=== PATIENT | female | born 1995 | race Caucasian/White ===

== ENCOUNTER 2023-01-21 11:50 | Emergency (ER) | payer OTHER, SELFPAY ==
[2023-01-21 12:03] VITALS: BP 130/80; PULSE 74; RESP 16; TEMP 36.5; O2SAT 100
--- NOTE | 2023-01-21 12:50 | ED.GENADULT ---
HPI - General Adult General Chief complaint: Upper Respiratory Infection Stated complaint: Congestion/Sore Throat/Ear Pain Source: patient Mode of arrival: ambulatory Limitations: no limitations History of Present Illness HPI narrative: Patient presents for evaluation of sick symptoms for last 2 weeks. Symptoms include sinus congestion, postnasal drainage, scratchy throat, mucopurulent discharge from the nares, mild cough, and headache. No fever, chills, nausea, vomiting. Several individuals at her place of employment have been sick. She tried some OTC cough and cold medicine without considerable improvement in her symptoms. She uses marijuana but does not smoke cigarettes. Related Data Allergies Allergy/AdvReac Type Severity Reaction Status Date / Time Penicillins Allergy Verified 08/03/12 23:33 Review of Systems Review of Systems: CONSTITUTIONAL: Denies fever, chills, or sweats. EYES: Denies visual changes, redness, or discharge. ENT: Reports sinus congestion, thick yellow/green drainage from nares, sore throat and ear pressure CARDIOVASCULAR: Denies chest pain, palpitations, or edema. RESPIRATORY: Denies cough or dyspnea. GASTROINTESTINAL: Denies abdominal pain, nausea, vomiting, or diarrhea. GENITOURINARY: Denies dysuria or hematuria. SKIN: Denies rash or itching. MUSCULOSKELETAL: Denies back pain, joint pain, or myalgia. NEUROLOGIC: Reports headache. Denies numbness, dizziness, or weakness. PSYCHIATRIC: Denies anxiety or depression. [facility], [facility] Past Medical History Medical History (Updated 01/21/23 @ 13:21 by Jose Ring, DISPLAY FABRICATOR, ) No pertinent past medical history Surgical History Surgical History No pertinent past surgical history Family History Family History Mother Family history non-contributory Social History Social History Smoking status: Never smoker Substance use: current Substance use type: marijuana Living arrangements: with family Gender identity (if verbalized by the patient): Female Sexual Orientation (if Verbalized by the Patient): Straight or Heterosexual Spiritual care concerns: No Exam Narrative: GENERAL: Well-appearing, well-nourished, and in no acute distress. HEAD: Normocephalic, atraumatic. EYES: PERRLA and EOMI. ENT: Bilateral maxillary sinus tenderness with thick yellow/green drainage in nares. Oropharynx without tonsillar hypertrophy exudate or other lesions. Bilateral TMs pearly bradley nonbulging NECK: Supple. No adenopathy or masses. No carotid bruits or JVD CHEST: Clear to auscultation. No respiratory distress. No wheezes rales or rhonchi HEART: Regular rate and rhythm. No murmur heard. Normal peripheral pulses. ABDOMEN: Soft, nontender, nondistended, normal active bowel sounds. EXTREMITIES: Normal range of motion. No edema. SKIN: Warm, dry, no rash. NEURO: No focal deficits. Alert and oriented x3. PSYCH: Normal mood and affect. Course Course Emergency Course: This is a 27-year-old female who presented for evaluation of sick symptoms. Strep COVID, influenza were all negative. She meets criteria for ARBS based upon characteristics of nasal discharge and duration of time in which she has been symptomatic. Will discharge with doxycycline. Increase hydration. Kxia-cmz-vymnqgj agents for symptom management. Follow up with primary provider. Go to the emergency department for worsening symptoms. Patient in agreement with plan of care. Level of Care: Express Care Visit Vital Signs Vital signs: Vital Signs Temperature 36.5 C 01/21/23 12:03 Pulse Rate 74 01/21/23 12:03 Respiratory Rate 16 01/21/23 12:03 Blood Pressure 130/80 01/21/23 12:03 Pulse Oximetry 100 01/21/23 12:03 Oxygen Delivery Room Air 01/21/23 12:03 Temperature 36.5 C
== END 2023-01-21 13:45 | disposition home or self-care (01) ==
PROVIDERS: Emergency Provider Nurse Practitioner; PCP Family Medicine
DX: J01.90 Acute sinusitis, unspecified (principal); Z20.822 Contact with and (suspected) exposure to COVID-19; F12.90 Cannabis use, unspecified, uncomplicated
CPT/HCPCS: 87081; 87426; 87804; 87880; 99203; C9803; G0463

== ENCOUNTER 2023-03-04 14:42 | Emergency (ER) | payer OTHER, SELFPAY ==
[2023-03-04 14:49] VITALS: BP 135/87; PULSE 86; RESP 20; TEMP 36.2; O2SAT 99
--- NOTE | 2023-03-04 15:19 | ED.URI ---
HPI - URI/Sore Throat General Chief Complaint: Upper Respiratory Infection Stated Complaint: Sore Throat/Cough Source: patient and RN notes reviewed Mode of arrival: ambulatory Limitations: no limitations History of Present Illness HPI Narrative: 28 y/o female presented for c/o sinus congestion, sore throat, ear pain for one week. Started with cough yesterday. 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 Denies dizziness, n/v/d/f/c. Taking otc med for symptoms. MD elicited complaint: cough Related Data Home Medications Medication Instructions Recorded Confirmed norethindrone (contraceptive) 0.35 0.35 mg PO DAILY 03/04/23 03/04/23 mg tablet sertraline 100 mg tablet 100 mg PO DAILY 03/04/23 03/04/23 zolmitriptan 5 mg tablet (Zomig) 5 mg PO ONCE 03/04/23 03/04/23 Allergies Allergy/AdvReac Type Severity Reaction Status Date / Time Penicillins AdvReac Intermediate Vomiting Verified 03/04/23 14:58 Review of Systems Review of Systems: CONSTITUTIONAL: Denies malaise, chills, sweats, fever EYES: Denies visual changes, redness, or discharge ENT: Reports rhinorrhea, congestion, otalgia, sore throat CARDIOVASCULAR: Denies chest pain, palpitations, edema RESPIRATORY: Reports cough, post nasal drainage. Denies dyspnea GASTROINTESTINAL: Denies abdominal pain, nausea, vomiting, diarrhea SKIN: Denies rash or itching MUSCULOSKELETAL: denies myalgia NEUROLOGIC: Denies headache PMFSH Past Medical History Medical History No pertinent past medical history Surgical History Surgical History No pertinent past surgical history Family History Family History Mother Family history non-contributory Social History Social History Smoking status: Never smoker Substance use: current Substance use type: marijuana Living arrangements: with family Gender identity (if verbalized by the patient): Female Sexual Orientation (if Verbalized by the Patient): Straight or Heterosexual Spiritual care concerns: No Exam Narrative: GENERAL: Mildly Ill-appearing, nontoxic no acute distress. HEAD: Normocephalic EYES: PERRLA, conjunctivae clear ENT: Mucous membranes moist. TM pearly bradley with dull light reflex bilaterally; no tragal tenderness. slightly hoarse voice. oropharynx erythematous without lesions or exudate, no drooling, no trismus, uvula midline. No tripod positioning, muffled voice, soft palate or pharyngeal wall bulging NECK: Supple. No lymphadenopathy CHEST: Clear to auscultation, breath sounds equal. No wheezing, rhonchi, rales, or stridor. No respiratory distress, speaks in full sentences. HEART: Regular rate and rhythm. No murmur heard. SKIN: Warm, dry, no rash. NEURO: Alert and oriented x3. PSYCH: Normal mood and affect Course Course Emergency Course: Patient is aware of diagnosis, understands and agrees to treatment plan. Anticipatory guidance given. Patient agrees to follow-up as directed and is aware of reasons to seek care at the emergency department. Portions of this record may have been created with voice recognition software Level of Care: Express Care Visit Vital Signs Vital signs: Vital Signs Temperature 97.1 F L 03/04/23 14:49 Pulse Rate 86 03/04/23 14:49 Respiratory Rate 20 03/04/23 14:49 Blood Pressure 135/87 03/04/23 14:49 Pulse Oximetry 99 03/04/23 14:49 Oxygen Delivery Room Air 03/04/23 14:49 Temperature 97.1 F L 03/04/23 14:49 Pulse Rate 86 03/04/23 14:49 Respiratory Rate 20 03/04/23 14:49 Blood Pressure 135/87 03/04/23 14:49 Pulse Oximetry 99 03/04/23 14:49 Oxygen Delivery Room Air 03/04/23 14:49 reviewed MDM - URI/Sore Throat MDM Narrative Medical decision making narrative: Negative strep test reviewed w
== END 2023-03-04 15:30 | disposition home or self-care (01) ==
PROVIDERS: Emergency Provider Nurse Practitioner Family; PCP Family Medicine
DX: J06.9 Acute upper respiratory infection, unspecified (principal)
CPT/HCPCS: 87081; 87880; 99213; G0463

== ENCOUNTER 2024-09-12 16:30 | Emergency (ER) | payer OTHER, SELFPAY ==
--- NOTE | ~2024-09-12 | XR_ITS ---
HISTORY: injury COMPARISON: None TECHNIQUE: 3 views of the right foot were performed FINDINGS: No acute fracture or dislocation is appreciated. No significant degenerative disease is noted. The base of the fifth metatarsal is intact. No calcaneal spur is noted. No significant soft tissue swelling is present. IMPRESSION: No acute fracture Reviewed, dictated and finalized at location A. IMPRESSION: No acute fracture
--- OUTSIDE RECORDS SUMMARY | 2024-09-12 16:33 | XMS_ITS | Data Portability ---
Author Organization [place] - Included [facility] , [facility] Address [address] [place] [address] Assessment Encounter Date Assessment Date Assessment LastModified by Organization Details LastModified Time 06/30/2024 06/30/2024 Viral respiratory infection - supported by symptoms of sore throat, cough, body aches, chills, congestion, and contact with sick individuals. - Advised the patient to get a COVID/influenza test at [facility] or [facility] - Continue taking iwuq-yws-pmeqkvd cold and flu medications containing Tylenol and decongestants - If test results are positive for COVID or influenza, further treatment will be provided - If test results are negative, recommended supportive care and vitamin C for immune support, noting that symptoms should resolve in about a week [email or web address] Not available 06/30/2024 07:15:03 Plan of Treatment Reminders Order Date Submit Date Provider Last Modified By Organization Details Last Modified Time Details Appointments None record ed. Lab None record ed. Referral None record ed. Procedures None record ed. Surgeries None record ed. Imaging None record ed. Medication Orders None record ed. Patient TargetsNo targets recorded. Patient Instructions Encounter Date Encounter Id Patient Instructions Last Modified By Organization Details Last Modified Time 06/30/2024 [id number] upper respirator y infection (cold): care instructions [email or web address] Not available 06/30/2024 07:16:47 Reason for Referral None Reported. Problems Name Problem SNOMED Code Status Onset Date Resolution Date Notes Provider Name and Address Organization Details Recorded Time Depressive disorder 14833782 Active COLLIN Chicas [address] [address], [place], [address], [place] - Included [employer] 07:10:14 Attention deficit hyperactivit y disorder 531025352 Active COLLIN Chicas 1 [facility] [address] [place] [address], [address], [place] - Included [facility] 07:10:22 Problem Notes None recorded. Medical Equipment None Reported. Allergies Allergen ID Allergen Name Allergen Category Reaction Reaction Severity Criticality Documentation Date Start Date Code Code System Note Provider Name and Address Organization Details Recorded Time 228394 Product containin g penicilli n (product) medicatio n Not available Not available Not available 06/30/2024 33592 8001 SNOMED Not Available Included [facility] - [facility] 05:55:33 Medications Name Sig Start Date Stop Date Status Note LastModified by Organization Details LastModified Time phenazopyrid ine 200 mg tablet active Not Available Not Available Not Available sulfamethoxa zole 800 mg-trimethop rim 160 mg tablet active Not Available Not Available Not Available UNLISTED MEDICATION [Migrated medication name:] Norethindro ne:: active Not Available Not Available No t Available UNLISTED MEDICATION [Migrated medication name:] Zyrtec:: active Not Available Not Available No t Available UNLISTED MEDICATION [Migrated medication name:] Sertraline: : active Not Available Not Available No t Available dextroamphet amine active Not Available Not Available Not Available Vitals Date Recorded Body weight Body mass index (BMI) Body height Provider Name and Address Organization Details Last Updated DateTime 06/30/2024 43167.59 g 32.8 kg/m2 160.02 cm COLLIN Chicas 1 [facility] [address], [address], [place] - Included [facility] 06/30/2024 07:10:33 Social History None recorded. Functional Status None recorded. Mental Status None recorded. Family History Nothing Reported. Medical History No medical history recorded. Gynecological HistoryNo gynecological history recorded. Obstetrics History GPAL:G 0 P 0 0 0 0 Past Encounters Encounter ID Performer Location Encounter Start Date Encounter Closed Date Diagnosis/Indication Diagnosis SNOMED-CT Code Diagnosis ICD10 Code Diagnosis Note [id number] COLLIN Chicas [facility] [address] [place] [address] 06/30/2024 07:08:51 06/30/2024 13:14:41 Acute upper respiratory infection 93077550 J06.9 Summary of Today's Visit:Toda y, you expressed concerns about feeling unwell with symptoms that began gradually, starting with body aches, chills, a dry cough, and a sore throat. You also mentioned pressure behind your eyes similar to migraines. 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 Diagnostic Recommenda tion:Given your symptoms, it is possible that you may have a viral respirator y infection, such as influenza, COVID-19, or another common virus. To determine the exact cause, it is important to obtain a COVID-19 and influenza test, which you can find at pharmacies like [facility] or [facility]. Please do this at your earliest convenienc e. Symptom Management :In the meantime, you can continue taking the over-the-c ounter cold and flu medication s you've been using, such as NyQuil and Tylenol, which contain ingredient s to help manage pain, fever, and congestion . Additional ly, taking vitamin C can help boost your immune system as you recover. Pending Follow-Up Plan:If your test results come back positive for either COVID-19 or influenza, further treatment can be initiated at that point. Should your results be negative, supportive care with rest and hydration is recommende d, as your symptoms may resolve on their own within about a week. If your symptoms persist or worsen, or if you have any questions or concerns, please reach out for follow-up care. Health Concerns Section Related Observation LastModified by Organization Detai ls LastModified Time None Recorded Concern Status LastModified by Organization Details LastModified Time None Recorded Advance Directives Directive None Recorded Payers Insurance Date Sequence Insurance Name Policy Number Policy Alcantara Covered Member ID Alcantara Member ID Guarantor Name 06/30/2024 [employer] [id number] Charlotte Fidelina [id number] Charlotte Fidelina 06/30/2024 1 *SELF PAY* Sara pang Fidelina 06/30/2024 3 *SELF PAY* [id number] Charlotte Fidelina [id number] Charlotte Fidelina 06/30/2024 2 [facility] [id number] Charlotte Fidelina [id number] Charlotte Fidelina 06/30/2024 1 [facility] [id number] Charlotte Fidelina [id number] Charlotte Fidelina Notes Date Note Type Note Provider Name and Address Organization Details Recorded Time 06/30/2024 text/html Call connected, patient greeted. Patient name, , telephone number, and location verified verbally with the patient. Telemedicine limitations reviewed, answered all questions the patient had about the telehealth interaction, and verbal consent obtained to treat. Clinician attests they are physically located in the following state at the time of visit: The patient also consents to the use of AI scribe technology. 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 The symptoms began progressively throughout the previous day, starting with soreness in various parts of the body. The patient then experienced significant chills and developed a cough, which is primarily dry but occasionally produces minimal mucus. The cough feels localized to the chest. The patient also reports a sore throat, potentially related to frequent coughing, and congestion in the head. There is associated pressure behind the eyes, similar to the patient s migraine symptoms. Given the patient s occupation, there have been multiple exposures, with illnesses such as COVID-19 and influenza circulating through the classroom recently. To date, the patient has self-managed symptoms with lral-tzu-oeaqkef medications such as NyQuil Cold and Flu daytime medicine and Tylenol, providing some relief, particularly for pain. The patient denies having a runny nose, sneezing, or fever. COLLIN Chicas 1 [facility] [address], [place], [address], [facility] 06/30/2024 07:16:50 OBGyn Episode No OBEpisode recorded.
--- OUTSIDE RECORDS SUMMARY | 2024-09-12 16:33 | XMS_ITS | Encounter Summary ---
Author Organization [facility] Address [facility] [place] [address] Care Team Providers Care Log Loader Name Role Phone Shannan Grewal NP Primary Care Provider [phone] Encounter Details Date Type Department Care Team (Late st Contact Info) Description 11/02/2022 [facility] [facility] Message Enc [facility] [address] [place], [place] [id number] [place], [facility] Provider Air Quality Message Social History Tobacco Use Types Packs/Day Years Used Date Smoking Tobacco: Never Passive Smoke Exposure: Never Smokeless Tobacco: Never Alcohol Use Standard Drinks/Week Comments Yes 0 (1 standard drink = 0.6 oz pur e alcohol) once a week PHQ-2 Answer Date Recorded Patient Health Questionnaire-2 Score 2 05/04/2022 Comments No Sex and Gender Information Value Date Recorded Sex Assigned at Not on file Legal Sex Female 7:40 PM CDT Gender Identity Not on file Sexual Orientation Not on file COVID-19 Exposure Response Date Recorded In the last 10 days, have yo u been in contact with someone who was confirmed or suspected to have Coronavirus/COVID-19? No / Unsure 10/11/2022 9:57 AM CDT documented as of this encounter Plan of Treatment Not on file documented as of this encounter Visit Diagnoses Not on filedocumented in this encounter Additional Health Concerns Assessment Noted Time PHQ-9 Depression Total Score: 13 05/04/ 022 10:26 AM DISPATCHER MAINTENANCE SERVICE documented as of this encounter Care Teams Log Loader Relationship Specialty Start Date End Date Shannan Grewal NP [address] [place], [place] [address] PCP - General NURSE PRACTITIONER 04/01/22 documented as of this encounter
--- OUTSIDE RECORDS SUMMARY | 2024-09-12 16:33 | XMS_ITS | Clinical Summary ---
Author Organization [address] Address [address] [place] [address] Care Team Providers Care Director Of Therapy Services Name Role Phone Michele Walker MD Primary Care Provider [phone] Allergies Active Allergy Reactions Criticality Noted Date Comments Penicillins Stomach upset,Nausea And Vomiting,Other (See comments),Unknown,Nausea & Vomiting Low 06/27/2016 Medications sertraline (ZOLOFT) 100 mg tablet Take 1 tablet (100 mg total) by mouth daily 12/19/2022 Active norethindrone (MICRONOR) 0.35 mg tablet Take 1 tablet (0.35 mg total) by mouth daily 12/19/2022 Active hydrOXYzine (ATARAX) 25 mg tablet TAKE 1/2 TO 1 TABLET BY MOUTH TWICE DAILY NEEDED FOR ANXIETY OR INSOMNIA 03/17/2023 Active cetirizine (ZyrTEC) 10 mg tablet Take 1 tablet (10 mg total) by mouth 07/13/2016 Active Active Problems Problem Noted Date Diagnosed Date Eczema 04/16/2023 Panic attack 04/16/2023 JOSE (generalized anxiety disorder) 03/21/2023 Moderate episode of recurrent major depressive d isorder 03/21/2023 Excessive bleeding in premenopausal period 12/28 Anxiety 12/19/2022 Depression 12/19/2022 Migraine 12/19/2022 Mild intermittent asthma without complication Seasonal allergies 12/19/2022 Numbness and tingling of right hand 07/11/2022 Social History Tobacco Use Types Packs/Day Years Used Date Smoking Tobacco: Never Assessed Comments Unknown Sex and Gender Information Value Date Recorded Sex Assigned at Not on file Legal Sex Female 9:48 AM CDT Gender Identity Not on file Sexual Orientation Not on file Obstetrics History Last Filed Vital Signs Vital Sign Reading Time Taken Comments Blood Pressure 116/78 05/14/2023 11:41 AM GLAZIER APPRENTICE Pulse 102 05/14/2023 11:41 AM GLAZIER APPRENTICE Temperature 36.9 C (98.4 F) 05/14/2023 11:41 AM GLAZIER APPRENTICE Respiratory Rate 21 05/14/2023 11:41 AM GLAZIER APPRENTICE Oxygen Saturation 97% 05/14/2023 11:41 AM GLAZIER APPRENTICE Inhaled Oxygen Concentration - - Weight 90.7 kg (200 lb) 05/14/2023 11:41 AM GLAZIER APPRENTICE Height 160 cm (5' 3 ) 05/14/2023 11:41 AM GLAZIER APPRENTICE Body Mass Index 35.43 05/14/2023 11:41 AM GLAZIER APPRENTICE Plan of Treatment Health Maintenance Due Date Last Done Comments Cervical Cancer Screening 1993 Depression Screening 1993 Hepatitis C Screening 1993 Varicella Vaccines (2 of 2 - 13+ 2-dose series) 12/21/2007 11/23/2007 Regular Well Visit/Exam 18-64 2011 Pneumococcal vaccine <65 (1 of 2 - PCV) 02/06/2012 DTaP/Tdap/Td Vaccine (6 - Td or Tdap) 10/11/2023 10/10/2013, 11/23/2007, 08/26/1994, Additional history exists Influenza Vaccine (Season Ended) 2025 02/14/2023, 03/20/2017, 03/20/2017, Additional history exists Hepatitis B Screening Completed 1993 , 1993, 1993 HPV Vaccines Aged Out No longer eligi ble based on patient's age to complete this topic Insurance [facility] CHOICE PLUS [facility] HMO/PPO Address: [place] [address] * Guarantor: Charlotte Kitchen Account Type Relation to Patient Date of Phone Billing Address Personal/Family Self 1995 [id number] [place] [address] Care Teams Director Of Therapy Services Relationship Specialty Start Date End Date Michele Walker MD [address] [facility] [place] [address] PCP - General Family Medicine 04/16/23
--- OUTSIDE RECORDS SUMMARY | 2024-09-12 16:33 | XMS_ITS | Referral Summary ---
Author Organization [address] Address [address] [place] [id number] Care Team Providers Care Glove Cleaner Name Role Phone Michele Walker MD Primary Care Provider [phone] Allergies Active Allergy Reactions Criticality Noted Date [...] on file Sexual Orientation Not on file Last Filed Vital Signs Vital Sign Reading Time Taken Comments Blood Pressure 116/78 05/14/2023 11:41 AM CHAPLAINCY Pulse 102 05/14/2023 11:41 AM CHAPLAINCY Temperature 36.9 C (98.4 F) 05/14/2023 11:41 AM CHAPLAINCY Respiratory Rate 21 05/14/2023 11:41 AM CHAPLAINCY Oxygen Saturation 97% 05/14/2023 11:41 AM CHAPLAINCY Inhaled Oxygen Concentration - - Weight 90.7 kg (200 lb) 05/14/2023 11:41 AM CHAPLAINCY Height 160 cm (5' 3 ) 05/14/2023 11:41 AM CHAPLAINCY Body Mass Index 35.43 05/14/2023 11:41 AM CHAPLAINCY Plan of Treatment Not on file Insurance [facility] CHOICE [facility]US [facility] H[facility]/PPO Address: [facility] [address] [place] [address] Care Teams Glove Cleaner Relationship Specialty Start Date End Date Michele Walker MD [address] [facility] [address] PCP - General Family Medicine 04/16/23
--- OUTSIDE RECORDS SUMMARY | 2024-09-12 16:33 | XMS_ITS | Encounter Summary ---
Author Organization [facility] Address [address] [place] [address] Phone Care Team Providers Care Clinical Engineering Manager Name Role Phone Sadiq Manzanares APRN, JOSE C Primary Care Pr ovider Reason for Visit * Reason Comments Medication Refill Encounter Details Date Type Department Care Team (Late st Contact Info) Description 12/04/2023 Refill [facility] - Family Medicine [facility] [address] [place] [address] Michele Walker MD [address] [place] [address] Medication Refill Social History Tobacco Use Types Packs/Day Years Used Date Smoking Tobacco: Never Smokeless Tobacco: Never Alcohol Use Standard Drinks/Week Comments Yes 0 (1 standard drink = 0.6 oz pur e alcohol) socially AHC Utilities Answer Date Recorded In the past 12 months has [employer], gas, oil, or water [employer] threatened to shut off services in your home? No 07/09/2023 Social Connection and Isolation Panel [NHANES] A nswer Date Recorded In a typical week, how many times do you talk on the phone with family, friends, or neighbors? Never 07/09/2023 How often do you get together with friends or re latives? Never 07/09/2023 How often do you attend shinto or church serv ices? Never 07/09/2023 Do you belong to any clubs o r organizations such as shinto groups, unions, fraternal or athletic groups, or school groups? No 07/09/2023 How often do you attend meet ings of the clubs or organizations you belong to? Never 07/09/2023 Are you , , di vorced, , never , or living with a partner? 07/09/2023 AUDIT-C Answer Date Recorded Q1: How often do you have a drink containing alc ohol? 2-3 times a week 07/09/2023 Q2: How many drinks containi ng alcohol do you have on a typical day when you are drinking? 1 or 2 07/09/2023 Q3: How often do you have si x or more drinks on one occasion? Never 07/09/2023 Overall Financial Resource Strain (CARDIA) Answe r Date Recorded How hard is it for you to pa y for the very basics like food, housing, medical care, and heating? Somewhat hard 07/09/2023 PHQ-2 Answer Date Recorded Total Score - Questions 1-9 18 05/09 [facility] - Occupational Stress Questionnaire Answer Date Recorded Do you feel stress - tense, restless, nervous, or anxious, or unable to sleep at night because your mind is troubled all the time - these days? Rather much 07/09/2023 Exercise Vital Sign Answer Date Recorde d On average, how many days pe r week do you engage in moderate to strenuous exercise (like a brisk walk)? 0 days 07/09/2023 On average, how many minutes do you engage in exercise at this level? 0 min 07/09/2023 Hunger Vital Sign Answer Date Recorded Within the past 12 months, y ou worried that your food would run out before you got the money to buy more. Never true 07/09/19 24 Within the past 12 months, t he food you bought just didn't last and you didn't have money to get more. Never true 07/09/2023 PRAPARE - Transportation Answer Date Re corded In the past 12 months, has l ack of transportation kept you from medical appointments or from getting medications? No 07/2023 In the past 12 months, has l ack of transportation kept you from meetings, work, or from getting things needed for daily living? No 07/09/2023 Housing Stability Vital Sign Answer Wil e Recorded In the last 12 months, was t here a time when you were not able to pay the mortgage or rent on time? No 07/09/2023 In the last 12 months, how many places have you lived? 2 07/09/2023 In the last 12 months, was t here a time when you did not have a steady place to sleep or slept in a long term (including now)? No 07/09/2023 Education Answer Date Recorded What is the highest level of school you have completed or the highest degree you have received? Bachelor's degree (e.g., BA, AB, BS) 12/19/2022 Sexually Active Control Partners Comments Yes Male Comments Unknown Sex and Gender Information Value Date Recorded Sex Assigned at Female 12/19/2022 2:03 PM CDT Legal Sex Female 9:22 AM CDT Gender Identity Female 12/19/2022 2:03 PM CDT Sexual Orientation Not on file documented as of this encounter Miscellaneous Notes * Telephone Encounter - Alejandra Mcgovern RN - 12/12/2023 8:18 AM CDT Name from pharmacy: NORETHINDRONE 0.35MG TABLETS 28S Will file in chart as: Norethindrone, Contraceptive, 0.35 MG Tablet The original prescription was reordered on 12/11/2023 by Michele Walker MD. * Telephone Encounter - Alejandra Mcgovern RN - 12/04/2023 11:52 AM CDT duplicate documented in this encounter Plan of Treatment Upcoming Encounters Date Type Department Care Team (Late st Contact Info) Description 01/14/2025 4:15 PM CDT [facility] Visit [facility] - [facility] - [facility] [address] [place] [address] Sadiq Manzanares APRN, SPRING REPAIRER HELPER HAND [address] [address] documented as of this encounter Goals Goal Patient Goal Type Associated Problems Recent Progress Patient-Stated? Author no unhealthy anxiety Behavioral Health On track(2022 5:08 PM ELEMENTARY EDUCATION TUTOR) Yes Raquel Guerra LCSW reduce anxiety and depression Behavioral Health On track(2022 5:08 PM ELEMENTARY EDUCATION TUTOR) No Raquel Guerra LCSW Note: Goal/Objective: Improve ability to cope with anxiety and depression. . Anticipated Time Frame for Goal Completion: 6 months Goal Reviewed with: patient Readiness to change: Ready to change Department associated with goal: [facility] Steps to achieve goal: will attend counseling/psychotherapy sessions at least once monthly, at least 6 sessions, utilizing individual and/or group sessions to express thoughts and feelings. to identify, verbalize and process at least three contributing factors/triggers to anxiety and depression. to identify and verbalize at least three actions/skills to prevent and/or cope with anxiety and depression. to put into action, at least one time weekly, for one month, an action/skill to prevent and or cope with anxiety and depression. documented as of this encounter Visit Diagnoses Diagnosis Excessive bleeding in premenopausal period Premenopausal menorrhagia documented in this encounter Additional Health Concerns Assessment Noted Time PHQ-9 Depression Total Score: 18 024 6:18 PM ELEMENTARY EDUCATION TUTOR documented as of this encounter Care Teams Clinical Engineering Manager Relationship Specialty Start Date End Date Sadiq Manzanares APRN, SPRING REPAIRER HELPER HAND [address] [facility] [place] [address] PCP - General Advanced Practice Nurse 01/15/24 documented as of this encounter
--- OUTSIDE RECORDS SUMMARY | 2024-09-12 16:33 | XMS_ITS | Encounter Summary ---
Author Organization [facility] Address [address] [place] [address] Care Team Providers Care Health Information Technologist Name Role Phone Shannan Grewal NP Primary Care Provider [phone] Encounter Details Date Type Department Care Team (Late st Contact Info) Description 08/29/2022 [employer] Message Enc [facility] Family Medicine [facility] [address] [place] [address] [facility] Med[facility] Social History Tobacco Use Types Packs/Day Years [...] on file Sexual Orientation Not on file documented as of this encounter Plan of Treatment Not on file documented as of this encounter Visit Diagnoses Not on filedocumented in this encounter Additional Health Concerns Assessment Noted Time PHQ-9 Depression Total Score: 13 022 10:26 AM HR LEADER documented as of this encounter Care Teams Health Information Technologist Relationship Specialty Start Date End Date Shannan Grewal NP [address] [place], [place] [address] PCP - General NURSE PRACTITIONER 04/01/22 documented as of this encounter
--- OUTSIDE RECORDS SUMMARY | 2024-09-12 16:33 | XMS_ITS | Clinical Summary ---
Author Organization [facility] Address [address] [place] [address] Care Team Providers Care Order Checker Packer Processer Name Role Phone Shannan Grewal NP Primary Care Provider [phone] Allergies Active Allergy Reactions Criticality Noted Date Comments Penicillins GI Upset,Nausea and Vomiting,Unknown,Vomiting 06/27/2016 Medications albuterol sulfate HFA 108 (90 Base) MCG/ACT inhaler Inhale 2 puffs into the lungs. 05/03/2017 Active cetirizine (ZYRTEC) 10 MG tablet Take 1 tablet by mouth daily as needed. 07/13/2016 Active SUMAtriptan (IMITREX) 50 MG tabletIndication s:Intractable migraine with aura without status migrainosus Take one tablet at onset headache, may repeat in 2 hours. Do not exceed 3 tablets in 24 hours 9 tablet 5 03/11/2022 Active Norethindrone, Contraceptive, 0.35 MG tablet Take 1 tablet by mouth daily. Active azithromycin (ZITHROMAX Z-ONEIL) 250 MG tabletIndication s:Upper respiratory tract infection, unspecified type Take 2 tablets by mouth on day one then 1 daily for four days. 6 tablet 07/11/2022 Active sertraline (ZOLOFT) 100 MG tabletIndication s:Severe episode of recurrent major depressive disorder, without psychotic features (CMS/HCC HHS/HCC) Take 1 tablet by mouth once daily 90 tablet 02/22/2023 Active Active Problems Problem Noted Date Diagnosed Date Numbness and tingling of right hand 07/11/2022 BMI 32.0-32.9,adult 03/11/2022 Panic attack Depression Anxiety Seasonal allergies Mild intermittent asthma without complication (H HS/HCC) Migraine Eczema Immunizations Immunization Administration Dates Next Due Dtp (Generic) 08/26/1994 Dtp/Hib (Tetramune) 08/26/1994,1993,1993,1993 Hepatitis A (Havrix [address]) 10/10/2013 Hepatitis B Pediatric 1993,1993,05/1992 Influenza (Generic) 02/25/2016 Influenza Adult (Generic) 03/20/2017,04/15/2016, 03/23/2015 MMR (MMRII) 11/23/2007,05/12/1994 Meningococcal (Generic) 11/23/2007 Polio Opv (Generic) 08/26/1994,1993,1993,1993 Td (TDVAX) 11/23/2007 Tdap (Generic) 10/10/2013 Varicella (Varivax) 11/23/2007 Family History Medical History Relation Comments Breast Cancer Maternal Aunt Asthma Mother Relation Status Comments Father Maternal Aunt Maternal Grandfather Alive Maternal Grandmother Alive Mother Alive Sister Alive Social History Tobacco Use Types Packs/Day Years Used Date Smoking Tobacco: Never Passive Smoke Exposure: Never Smokeless Tobacco: Never Tobacco Cessation:Counseling Given: Not Answered Alcohol Use Standard Drinks/Week Comments Yes 0 [...] Sign Reading Time Taken Comments Blood Pressure 132/75 10/11/2022 10:10 AM CDT Pulse 83 10/11/2022 10:10 AM CDT Temperature 36.7 C (98.1 F) 10/11/2022 10:10 AM CDT Respiratory Rate 18 07/11/2022 8:27 AM SECURITY THREAT ANALYST Oxygen Saturation 99% 10/11/2022 10:10 AM CDT Inhaled Oxygen Concentration - - Weight 90.3 kg (199 lb) 10/11/2022 10:10 AM CDT Height 162.6 cm (5' 4 ) 10/11/2022 10:10 AM CDT Body Mass Index 34.16 10/11/2022 10:10 AM CDT Plan of Treatment Health Maintenance Due Date Last Done Comments Cervical Cancer Screening Pap Smear (Age 30 to 64) Every 3 Years 1993 Annual Physical 02/06/1996 Hepatitis C 2011 Pneumococcal Vaccine: Pediatrics (0 to 5 Years) and At-Risk Patients (6 to 49 Years) (1 of 2 - PCV) 02/06/2012 Cervical Cancer Screening Pap with HPV Testing (Age 30 to 64) Every 5 Years 2023 Cervical Cancer Screening with HPV 2023 DTaP, Tdap and Td Vaccines (4 - Td or Tdap) 10/11/2023 10/10/2013, 11/23/2007, 08/26/1994, Additional history exists COVID-19 Vaccine ( season) 2024 12/17/2021 PHQ-2 (Physician [place]) 05/08/2024 Hepatitis B Vaccines Completed 1993, 1993, 1993 Meningococcal Vaccine Aged Out 11/23/2007 No farhad praveena eligible based on patient's age to complete this topic HPV Vaccines Aged Out No longer eligi ble based on patient's age to complete this topic Meningococcal B Vaccine Aged Out No l onger eligible based on patient's age to complete this topic RSV Immunizations Under 20 Months Aged Out No longer eligible based on patient's age to complete this topic Insurance [employer] Care Teams Order Checker Packer Processer Relationship Specialty Start Date End Date Shannan Grewal NP [address] [facility] [address] [place] [address] PCP - General NURSE PRACTITIONER 04/01/22
--- OUTSIDE RECORDS SUMMARY | 2024-09-12 16:33 | XMS_ITS | Clinical Summary ---
Author Organization [facility] Address [address] [place] [address] Phone Care Team Providers Care Toolmaker Helper Name Role Phone Sadiq Manzanares APRN, HAND FOLDER Primary Care Pr ovider Allergies Active Allergy Reactions Criticality Noted Date Comments Penicillins Vomiting,Unknown,Other (see Comments) 06/27/2016 Medications cetirizine (ZyrTEC) 10 MG TabletIndicatio ns:Seasonal allergies Take 1 Tablet by mouth. 7 Active hydrOXYzine (ATARAX) 25 MG Tablet TAKE 1/2 TO 1 TABLET BY MOUTH TWICE DAILY NEEDED FOR ANXIETY OR INSOMNIA 3 Active triamcinolone (KENALOG) 0.1 % Cream Application Site: apply daily to hands (Description and Location) 160 g 1 4 Active Norethindrone, Contraceptive, 0.35 MG TabletIndicatio ns:menorrhagia Take 1 Tablet by mouth daily. Indications: menorrhagia 84 Tablet 4 Active sertraline (ZOLOFT) 100 MG TabletIndicatio ns:Moderate episode of recurrent major depressive disorder (HCC),Anxiety Take 2 Tablets by mouth daily. 60 Tablet 4 Active amphetamine-dex troamphetamine (ADDERALL XR) 20 MG CAPSULE SR 24 HR Take 10 mg by mouth every morning. Active amphetamine-dex troamphetamine (Adderall) 5 MG Tablet Take 5 mg by mouth daily. MIDDLE OF THE DAY Active SUMAtriptan (IMITREX) 25 MG Tablet Take 1 Tablet by mouth once as needed for Migraine or Headaches. Use as directed. May repeat dose in 2 hours if headache recurs. Max of 2 tablets in 24 hours. 9 Tablet 1 4 Active Active Problems Problem Noted Date Diagnosed Date JOSE (generalized anxiety disorder) 03/21/2023 Moderate episode of recurrent major depressive d isorder 03/21/2023 Excessive bleeding in premenopausal period 12/28 Anxiety 12/19/2022 Depression 12/19/2022 Migraine 12/19/2022 Mild intermittent asthma without complication Seasonal allergies 12/19/2022 Immunizations Immunization Administration Dates Next Due Covid-19, Mrna, Lnp-s, Pf, 3 0 Mcg/0.3 Ml Dose, Se-sucrose (Wonderswamp sánchez top) 12/17/2021 DTP Vaccine 08/26/1994 DTP-Hib 08/26/1994, 4,1993,04/07 Hepatitis A Vaccine 10/10/2013 Hepatitis B Vaccine, Pediatric/adolescent 1993,1993,1993 Influenza Seasonal, Intrader mal, Preservative Free 02/14/2023 Influenza Vaccine 02/14/2023,02/25/2016,02/25/20 Influenza Vaccine, Quadrivalent, PF 03/20/2017 Influenza Vaccine,unspecifie d Formulation 03/20/2017,04/15/2016,02/25/2016,03/23 Influenza, Injectable, Quadrivalent 04/15/2016,1 05/23/2014 Influenza,Split Virus,Trivalent,Injectable,PF 01/15/2024 MMR Vaccine 11/23/2007,05/12/1994 Meningococcal Vaccine, Unspe cified Formulation 11/23/2007 OPV 08/26/1994, 4,1993,04/07 TD VACCINE 11/23/2007 TDAP Vaccine 10/10/2013 Varicella Vaccine Live 11/23/2007 Family History Medical History Relation Name Comments Cancer Father Stevie Diabetes Maternal Aunt 1 Nanyc Cancer Maternal Aunt 2 Racheal Rheumatoid Arthritis Maternal Aunt 2 Racheal Stroke Maternal Aunt 2 Racheal Depression Maternal Grandfather Taj Diabetes Maternal Grandfather Taj Heart Attack Maternal Grandfather Taj Hypertension Maternal Grandfather Taj Rheumatoid Arthritis Maternal Grandfather Taj Mental Disorder, Other Maternal Grandmother Karla Rheumatoid Arthritis Maternal Grandmother Karla Asthma Mother Shannan Mental Disorder, Other Mother Shannan No Known Problems Sister Noreen Relation Name Status Comments Father Stevie Maternal Aunt 1 Nancy Maternal Aunt 2 Racheal Maternal Grandfather Taj Alive Maternal Grandmother Karla Alive Mother Shannan Alive Sister Noreen Alive Social History Tobacco Use Types Packs/Day Years Used Date Smoking Tobacco: Never Smokeless Tobacco: Never Tobacco Cessation:Counseling Given: No Alcohol Use Standard Drinks/Week Comments Yes 5 (1 standard drink = 0.6 oz pur e alcohol) socially [facility] Utilities Answer Date Recorded In the past 12 months has e electric, gas, oil, or water company threatened to shut off services in your home? No 07/09/2023 Social Connection and Isolation Panel [NHANES] A nswer Date Recorded In a typical week, how many times do you talk on the phone with family, friends, or neighbors? Never 07/09/2023 How often do you get together with friends or re latives? Never 07/09/2023 How often do you attend yazidi or holiness serv ices? Never 07/09/2023 Do you belong to any clubs o r organizations such as yazidi groups, unions, fraternal or athletic groups, or [...] Total Score - Questions 1-9 18 05/09 [facility] - Occupational Stress [...] place to sleep or slept in a nursing home (including now)? No 07/09/2023 Education Answer Date Recorded What is the highest level of school you have completed or the highest degree you have received? Bachelor's degree (e.g., BA, AB, BS) 12/19/2022 Sexually Active Control Partners Comments Yes Oral Contraceptive Male Comments Unknown Sex and Gender Information Value Date Recorded Sex Assigned at Female 12/19/2022 2:03 PM CDT Legal Sex Female 9:22 AM CDT Gender Identity Female 12/19/2022 2:03 PM CDT Sexual Orientation Not on file Last Filed Vital Signs Vital Sign Reading Time Taken Comments Blood Pressure 122/86 01/15/2024 4:17 PM CDT Pulse 94 01/15/2024 4:17 PM CDT Temperature 36.2 C (97.1 F) 01/15/2024 4:17 PM CDT Respiratory Rate 16 01/15/2024 4:17 PM CDT Oxygen Saturation 95% 01/15/2024 4:17 PM CDT Inhaled Oxygen Concentration - - Weight 87.4 kg (192 lb 11.2 oz) 01/15/2024 4:17 PM CDT Height 161.3 cm (5' 3.5 ) 01/15/2024 4:17 PM CDT Body Mass Index 33.6 01/15/2024 4:17 PM CDT Plan of Treatment Upcoming Encounters Date Type Department Care Team (Late st Contact Info) Description 01/14/2025 4:15 PM CDT [facility] Visit [facility] - [place] [address] [place] [address] Sadiq Manzanares, PLANT PHYSIOLOGIST, HAND FOLDER #[address] [address] Health Maintenance Due Date Last Done Comments Hepatitis C Virus (HCV) Screening 1993 Pneumococcal Immunization Combined (1 of 2 - PCV) 02/06/2012 Pap Smear 2014 Cervical Cancer Screening (CCS) 2023 HPV/Cotest 2023 DTaP/Tdap/Td Immunization (7 - Td or Tdap) 10/11/2023 10/10/2013, 11/23/2007, 08/26/1994, Additional history exists SARS-COV-2 Immunization (2 - season) 2024 12/17/2021 Respiratory Syncytial Virus (RSV) Immunization (Adult) (1 - 1-dose 75+ series) 02/06/2068 Hepatitis B Immunization Completed 994, 1993, 1993 Meningococcal Immunization (ACWY) Aged Out 11/23/2007 No longer eligible based on patient's age to complete this topic Influenza Immunization Completed 4, 02/14/2023, 03/20/2017, Additional history exists Rotavirus Immunization Aged Out No lo nger eligible based on patient's age to complete this topic Goals Goal Patient Goal Type Associated Problems Recent Progress Patient-Stated? Author no unhealthy anxiety Behavioral Health On track(2022 5:08 PM STIFF STRAW HAT WASHER) Yes Raquel Guerra LCSW reduce anxiety and depression Behavioral Health On track(2022 5:08 PM STIFF STRAW HAT WASHER) No Raquel Guerra LCSW Note: Goal/Objective: Improve ability to cope with anxiety and depression. . Anticipated Time Frame for Goal Completion: 6 months Goal Reviewed with: patient Readiness to change: Ready to change Department associated with goal: [facility] Steps to achieve goal: [...] and or cope with anxiety and depression. [place] [address] [facility] Care Teams Toolmaker Helper Relationship Specialty Start Date End Date Sadiq Manzanares, PLANT PHYSIOLOGIST, HAND FOLDER [address] [place] [address] [place] [address] PCP - General Advanced Practice Nurse 01/15/24
[2024-09-12 16:38] VITALS: BP 148/99; PULSE 87; RESP 20; TEMP 36.4; O2SAT 100
--- NOTE | 2024-09-12 16:52 | ED_ITS ---
HPI - Extremity Injury (Lower) General Chief Complaint: Extremity Injury, Lower Stated Complaint: Right Foot/Toe Injury Time Seen by Provider: 09/12/24 17:00 Source: patient, RN notes reviewed and old records reviewed Mode of arrival: ambulatory Limitations: no limitations History of Present Illness HPI Narrative: 29 year old female presents to [facility] care with complaints of right foot pain with some swelling and bruising noted to the top of distal foot and to 2nd and 3rd toe region since dropping a shelf onto her foot last evening. Patient reports some throbbing ain and soreness to her right foot especially with weight bearing and movement of distal foot and toes. Patient has used ice to her foot, has taken Naprosyn and elevated foot. MD complaint: foot injury Onset (ago): day(s) (last night) Injury: Right: foot Type of Injury: blunt Place: home Severity scale (1-10): 6 Exacerbating factors: weight bearing and movement Treatments prior to arrival: cold therapy and other (Naprosyn and elevated) Related Data Home Medications ?Medication ?Instructions ?Recorded ?Confirmed ?Last Taken ?Type norethindrone (contraceptive) 0.35 0.35 mg PO DAILY 03/04/23 03/04/23 Unknown History mg tablet cetirizine 10 mg tablet (24Hour 10 mg PO DAILY 09/12/24 Unknown History Allergy) dextroamphetamine-amphetamine ER 20 mg PO DAILY 09/12/24 Unknown History 20 mg 24hr capsule,extend release duloxetine 30 mg capsule,delayed 30 mg PO DAILY 09/12/24 Unknown History release Allergies Allergy/AdvReac Type Severity Reaction Status Date / Time Penicillins AdvReac Intermediate Vomiting Verified 09/12/24 16:48 Review of Systems Review of Systems: CONSTITUTIONAL: Denies fever, chills, or sweats. CARDIOVASCULAR: Denies chest pain, palpitations, or edema. RESPIRATORY: Denies cough or dyspnea. SKIN: Denies rash or itching. Denies laceration or abrasions MUSCULOSKELETAL: Reports pain and swelling to the distal right foot along 2nd and 3rd toe region after dropping a shelf on foot last evening. NEUROLOGIC: Denies numbness, or weakness. All systems reviewed & are unremarkable except as noted in HPI and below PMFSH Past Medical History Medical History (Updated 09/14/24 @ 21:45 by Simran Geronimo NP) Anxiety and depression Sinusitis GERD (gastroesophageal reflux disease) ADHD (attention deficit hyperactivity disorder) Surgical History Surgical History No pertinent past surgical history Family History Family History Mother Family history non-contributory Social History Social History Smoking status: Never smoker Substance use: current Substance use type: marijuana Living arrangements: with family Gender identity (if verbalized by the patient): Female Sexual Orientation (if Verbalized by the Patient): Straight or Heterosexual Spiritual care concerns: No Comments At time of signature, agree with nursing past medical, surgical, social and family history. There is no relevant family history pertinent to the presenting complaint Exam Narrative: GENERAL: Well-appearing, well-nourished, and in no acute distress. HEAD: Normocephalic, atraumatic. EYES: PERRLA, conjunctivae clear NECK: Supple. CHEST: Speaks in full sentences. No respiratory distress.AO2 100% on room air HEART: Regular rate and rhythm. Normal and equal peripheral pulses. EXTREMITIES: Right foot has normal strength and sensation, normal range of mo tion.Positive for edema or ecchymosis. 5/5 strength with normal flexion and extension. Normal sensation with sensitivity to light touch and pain. distal right foot tenderness over 2nd and 3rd toes.? ?No open wounds, no skin tenting, no devitalized tissue or atrophy, no trophic changes, no obvious deformity, alignment normal, nearby joints and structures intact. Distal pulses palpable and equal bilaterally, skin warm, dry, pink. Capillary refill less than 3 seconds. Course Course Emergency Course: Patient is aware of diagnosis, understands and agrees to treatment plan. Anticipatory guidance given. Patient agrees to follow-up as directed and is aware of reasons to seek care at the emergency department. Portions of this record may have been created with voice recognition software Level of Care: Express Care Visit Vital Signs Vital signs: Vital Signs Temperature 36.4 C L 09/12/24 16:38 Pulse Rate 87 09/12/24 16:38 Respiratory Rate 20 09/12/24 16:38 Blood Pressure 148/99 H 09/12/24 16:38 Pulse Oximetry 100 09/12/24 16:38 Oxygen Delivery Room Air 09/12/24 16:38 Temperature 36.4 C L 09/12/24 16:38 Pulse Rate 87 09/12/24 16:38 Respiratory Rate 20 09/12/24 16:38 Blood Pressure 148/99 H 09/12/24 16:38 Pulse Oximetry 100 09/12/24 16:38 Oxygen Delivery Room Air 09/12/24 16:38 reviewed MDM - Extremity Injury (Lower) MDM Narrative Medical decision making narrative: Patient's injury and/or pain is consistent with musculoskeletal etiology. No signs of neurological or vascular compromise on exam compartments and tissues are soft without signs of compartment syndrome. Patient is felt appropriate for further evaluation on outpatient basis Differential Diagnosis Differential diagnosis: Likely fracture of toe and other (foot fracture, right foot pain, right foot contusion) Medical Records Attestation: I reviewed the patient's medical records. ABG Data Attestation: I personally reviewed and interpreted this ABG as follows: Imaging Data Attestation: I personally reviewed and interpreted this imaging study as follows: My impression: no fracture of right foot Radiologist's impression: [address] [employer] [place] [id number] XRay Report Signed Patient: Charlotte Kitchen : 1995 MR#: [id number] Age: 29 Acct:[id number] Loc: [facility] ADM Date: 09/12/24Attending Dr: Ordering Physician: Simran Geronimo APRN Date of Service: 09/12/24 Procedure(s): XR foot RT min 3V Accession Number(s): [id number] cc: MANAGER DENTAL PHYSICIAN; Simran Geronimo APRN~ HISTORY: injury COMPARISON: None TECHNIQUE: 3 views of the right foot were performed FINDINGS: No acute fracture or dislocation is appreciated. No significant degenerative disease is noted. The base of the fifth metatarsal is intact. No calcaneal spur is noted. No significant soft tissue swelling is present. IMPRESSION: No acute fracture Reviewed, dictated and finalized at location A. Please be advised this is a medical document. It is intended for [id number] communication. It is written in medical language and may contain unfamiliar abbreviations or verbiage. Medical documents are intended to carry relevant information, facts as evident, and the clinical opinion of the practitioner at the time of the encounter. This report may have been done utilizing a voice recognition system. Attempts have been made to correct errors. However, there may be uncorrected grammatical, spelling, and recognition errors present. The file time of this note does not necessarily represent the time of service. Dictated By: Eva Correia MD 09/12/24 7012 Signed By: <Electronically signed by Eva Correia MD in OV> Critical Care Time Critical Care Time Critical Care Time: No Discharge Plan Discharge Clinical Impression: Contusion of foot, right Qualifiers: Encounter type: initial encounter Qualified Code(s): S90.31XA - Contusion of right foot, initial encounter Patient Disposition: Home Condition: Stable Instructions: Antibiotic Form, Foot Contusion (ED) Additional Instructions: Elastic wrap right foot Tylenol for lesser pain Ibuprofen regularly for the next 2-3 days for the inflammation Follow-up with orthopedic surgeon if increased pain Follow-up with PCP if further problems or concerns Ice to the area 20-30 minutes 4-6 times a day Elevate above heart If your symptoms persist, change or worsen significantly before you can contact your personal physician then please, without delay, go to the emergency department for further evaluation. Follow-up with PCP in 7-10 days or sooner if needed Follow up with PCP soon in regards to your blood pressure which is elevated above threshold for referral. Blood pressure above 120/80 may indicate pre- hypertension. 148/99 x-ray negative for fracture Patient Language: Latvian Prescriptions: No Action norethindrone (contraceptive) 0.35 mg tablet 0.35 mg PO DAILY dextroamphetamine-amphetamine 20 mg capsule,extended release 24hr 20 mg PO DAILY duloxetine 30 mg capsule,delayed release(DR/EC) 30 mg PO DAILY cetirizine [24Hour Allergy] 10 mg tablet 10 mg PO DAILY Follow-up/Referrals: PHYSICIAN,MANAGER DENTAL [Primary Care Provider] - Time of Disposition: 18:13 Quality [place] Coma Scale Eyes: Open Verbal: Oriented and Alert Motor: Follows Commands [place] Coma Total Score: 15
== END 2024-09-12 18:21 | disposition home or self-care (01) ==
PROVIDERS: Emergency Provider Registered Nurse
DX: S90.31XA Contusion of right foot, initial encounter (principal); W20.8XXA Other cause of strike by thrown, projected or falling object, initial encounter; K21.9 Gastro-esophageal reflux disease without esophagitis; F12.90 Cannabis use, unspecified, uncomplicated
CPT/HCPCS: 73630; 99213; G0463